=== PATIENT | female | born 1945 | race Caucasian/White ===

== ENCOUNTER → 2016-12-17 | Outpatient (CLI) | payer MEDICARE, OTHER ==
[~2016-12-17] MED LIST: ALBUTEROL0.63 MG/3 IH; ALBUTEROL17 GM INH; ASPIRIN81 M1 PO; CALCIUM + VITAM1 TAB PO; DESYREL50 M1 PO; DESYREL50 MG DOB; DESYREL50 MG PO; DIAZIDE PO; DOXYCYCLINE HY100 M1 PO; DUONEB 2.5-0.5 M3 ML NEB; ENALAPRIL MALEA20 MG PO; FISH OIL 1,2001 EAC1 PO; FISH OIL500 M2 PO; FLEXERIL10 M1 PO; INDERAL20 MG PO; LEVOTHROID100 MC1 PO; LEVOXYL100 MC1 PO; LIPITOR20 MG PO; MEDROL4 MG/DOSE- PO; OYSTER SHELL C500 MG PO; PLAVIX PO; SPIRIVA18 MCG INH; STERAPRED5 MG/DOSE1 PO; TRAMADOL HCL50 M1 PO; TRIAMTERENE-HC1 EAC1 PO; TYLENOL #3 PO; VASOTEC20 MG PO; ZETIA PO
--- NOTE | ~2016-12-17 | MY11 ---
[facility] A Service of [facility] RADIOLOGY TEXT RESULTS PATIENT: SHARRON FLORENCE LOCATION: [facility] : 43 UNIT #: [id number] AGE: [address]: Francy Antony MD SEX: F ORDER DR: [id number] [address] [address] [id number] O MR#: [id number] Acc #: [id number] NAME: SHARRON FLORENCE : 1945 SEX: F STUDY DATE/TIME: 12/17/2016 11:04 UNIT: [facility] ROOM: STUDY DESCRIPTION: MY Mammogram Screening Dig Mikael Attending Physician: Francy Antony M.D. Referring Physician: Francy Antony M.D. Ordering Physician: Francy Antony M.D. Primary Care Physician: Francy Antony M.D. MEDICAL IMAGING REPORT This report is preliminary unless electronic signature is present. EXAM Digital screening mammogram, 12/17/2016, [facility] HISTORY A 71-year-old woman, positive family history, mother and maternal aunt postmenopausal. Previous cyst aspiration right breast stereotactic biopsy left breast. Annual screening. COMPARISON STUDIES Comparison mammograms date to 11/22/2005 with most recent 12/16/2015 FINDINGS Digital imaging of each breast was completed utilizing a two-view examination of each breast in craniocaudal and mediolateral-oblique projections. Review and interpretation of digital mammograms include a second review in conjunction with FDA-approved CAD device. There is a normal parenchymal presentation bilaterally consistent with the patient's age. There are no breast masses imaged and no parenchymal asymmetry is visualized. There are no suspicious microcalcifications and I see no focal architectural disturbance. IMPRESSION Negative screening digital mammogram. One-year followup recommended. Patients over the age of 40 are entered into a reminder system with target due date for the next mammogram. A result letter will also be sent to the patient. BIRADS: 1 Negative ADDENDUM Breast parenchyma is fatty replaced [facility] A Service of [facility] RADIOLOGY TEXT RESULTS PATIENT: SHARRON FLORENCE LOCATION: [facility] : 43 UNIT #: [id number] AGE: [address]: Francy Antony MD SEX: F ORDER DR: Dictated by... Gustavo Villanueva M.D. THIS IS AN ELECTRONICALLY VERIFIED REPORT Gustavo Villanueva M.D. at 12/17/2016 2:38 PM EVE/marlene TD: 12/17/2016 13:57 JOB #: [id number] MEDICAL IMAGING REPORT Page 1 of 1
--- NOTE | ~2016-12-17 | BD1 ---
[facility] A Service of [facility] RADIOLOGY TEXT RESULTS PATIENT: SHARRON FLORENCE LOCATION: [facility] : 43 UNIT #: [id number] AGE: [address]: Francy Antony MD SEX: F ORDER DR: [id number] [address] [address] [id number] O MR#: [id number] Acc #: [id number] NAME: SHARRON FLORENCE : 1945 SEX: F STUDY DATE/TIME: 12/17/2016 10:52 UNIT: [facility] ROOM: STUDY DESCRIPTION: BD Dexa Bone Dens 1+ Site Attending Physician: Francy Antony M.D. Referring Physician: Francy Antony M.D. Ordering Physician: Francy Antony M.D. Primary Care Physician: Francy Antony M.D. MEDICAL IMAGING REPORT This report is preliminary unless electronic signature is present. EXAM DXA scan 12/17/2016 HISTORY Status post menopause with no hormone replacement therapy. Osteopenia. Hypertension with blood pressure medication. Thyroid medication, Synthroid use. Smoking history for 30 years. FINDINGS Bone mineral density in the lumbar spine from L1-L4 was 1.462 g/cm2, which is 2.3 standard deviations above the mean when compared to the young adult reference population, which is within the range of normal. This is 2.9 standard deviations above the mean when compared to the age-matched population. Compared with 12/07/2013, there has been an increase in bone mineral density in the lumbar spine of 0.8%. Bone mineral density in the left femoral neck was 0.914 g/cm2, which is 0.9 standard deviations below the mean when compared to the young adult reference population, which is within the range of normal. This is 0.2 standard deviation above the mean when compared to the age-matched population. Compared with 12/07/2013, there has been a decrease in bone mineral density in the left hip of 1.7%. Bone mineral density in the right femoral neck was 0.971 g/cm2, which is 0.5 standard deviation below the mean when compared to the young adult reference population, which is within the range of normal. This is 0.6 standard deviation above the mean when compared to the age-matched population. Compared with 12/07/2013, there has been a decrease in bone mineral density in the right hip of 2.8%. IMPRESSION Bone mineral density in the lumbar spine within the range of normal and within the hips bilaterally also within the range of normal. Compared [facility] A Service of [facility] RADIOLOGY TEXT RESULTS PATIENT: SHARRON FLORENCE LOCATION: [facility] : 43 UNIT #: [id number] AGE: [address]: Francy Antony MD SEX: F ORDER DR: with 12/07/2013, there has been an increase in bone mineral density in the lumbar spine and a decrease in bone mineral density in the hips bilaterally. Dictated by... Neil Manning M.D. THIS IS AN ELECTRONICALLY VERIFIED REPORT Neil Manning M.D. at 12/17/2016 5:35 PM Vicenta TD: 12/17/2016 14:06 JOB #: [id number] MEDICAL IMAGING REPORT Page 1 of 1
== END | disposition home or self-care (01) ==
LOC: SMAM 10:25
DX: Z12.31 Encounter for screening mammogram for malignant neoplasm of breast (principal); Z13.820 Encounter for screening for osteoporosis; I10 Essential (primary) hypertension; Z87.891 Personal history of nicotine dependence; Z78.0 Asymptomatic menopausal state; Z80.3 Family history of malignant neoplasm of breast; Z98.890 Other specified postprocedural states
CPT/HCPCS: 77080; G0202